=== PATIENT | female | born 1995 | race Caucasian/White ===

== ENCOUNTER 2017-08-26 13:05 | Inpatient (IN) | payer OTHER ==
[2017-08-26 13:06] VITALS: BMI 20.5
[2017-08-26] MEDS ORDERED: Sodium Chloride 0.9% 1,000 ML IV ONE ×2 (13:47→16:17)
--- NOTE | 2017-08-26 13:49 | C.PDOC ---
Time Seen by Provider: 08/26/17 13:36 Chief Complaint (Nursing): Fever Past Medical History Vital Signs: Last Vital Signs Temp 98.9 F 08/26/17 13:17 Pulse 136 H 08/26/17 13:17 Resp 20 08/26/17 13:17 BP 124/84 08/26/17 13:17 Pulse Ox 100 08/26/17 13:17 - [facility] Procedures EXCISION OF LEFT NECK LYMPHATIC, PERC APPROACH, DIAGN (07/17/15) EXCISION OF STOMACH, ENDO, DIAGN (07/17/15) EXTRACTION OF ILIAC BONE MARROW, PERC APPROACH, DIAGN (07/17/15) INSPECTION OF LOWER INTESTINAL TRACT, ENDO (07/17/15) Family History: States: Unknown Family Hx - Social History Hx Alcohol Use: No Hx Substance Use: No - Immunization History Hx Tetanus Toxoid Vaccination: No Hx Influenza Vaccination: No Hx Pneumococcal Vaccination: No ED Course And Treatment O2 Sat by Pulse Oximetry: 100 Disposition - Disposition
--- NOTE | 2017-08-26 13:50 | C.PDOC ---
History Of Present Illness 22 y/o female with PMHx of PDA with wire repair at age 1 presents to ED with complaints of subjective fever for 2-3 weeks with associated swollen and tender lymph nodes below left clavicle. Patient states symptoms are consistent with previous symptoms with diagnosis of Kikuchi disease. Patient was seen at ED in 2014 with similar symptoms and discharged with iron supplements, she admits she is not compliant. No other complaints at this time. Time Seen by Provider: 08/26/17 13:36 Chief Complaint (Nursing): Fever History Per: Patient History/Exam Limitations: no limitations Onset/Duration Of Symptoms: Days Current Symptoms Are (Timing): Still Present Past Medical History Reviewed: Historical Data, Nursing Documentation, Vital Signs Vital Signs: Last Vital Signs Temp 98.9 F 08/26/17 13:17 Pulse 116 H 08/26/17 14:58 Resp 17 08/26/17 14:58 BP 143/93 H 08/26/17 14:58 Pulse Ox 100 08/26/17 15:48 Surgical History: No Surg Hx - [facility] Procedures EXCISION OF LEFT NECK LYMPHATIC, PERC APPROACH, DIAGN (07/17/15) EXCISION OF STOMACH, ENDO, DIAGN (07/17/15) EXTRACTION OF ILIAC BONE MARROW, PERC APPROACH, DIAGN (07/17/15) INSPECTION OF LOWER INTESTINAL TRACT, ENDO (07/17/15) Family History: States: No Known Family Hx - Social History Hx Alcohol Use: No Hx Substance Use: No - Immunization History Hx Tetanus Toxoid Vaccination: No Hx Influenza Vaccination: No Hx Pneumococcal Vaccination: No Review Of Systems Constitutional: Positive for: Fever. Negative for: Chills Cardiovascular: Negative for: Chest Pain Respiratory: Negative for: Cough, Shortness of Breath Gastrointestinal: Negative for: Nausea, Vomiting Skin: Negative for: Rash Physical Exam - Physical Exam Appears: Non-toxic, No Acute Distress Skin: Warm, Dry, Pale Head: Atraumatic, Normacephalic Eye(s): bilateral: Normal Inspection Oral Mucosa: Moist Throat: Normal, No Erythema, No Exudate Neck: Normal ROM, Supple Chest: Other (Swollen mild tender lymph node to left lower clavicle) Cardiovascular: Rhythm Regular Respiratory: Normal Breath Sounds, No Rales, No Rhonchi, No Wheezing Gastrointestinal/Abdominal: Soft, No Tenderness, No Guarding, No Rebound Neurological/Psych: Oriented x3 ED Course And Treatment - Laboratory Results Result Diagrams: 08/26/17 14:13 08/26/17 14:13 ECG: Interpreted By Me ECG Rhythm: Sinus Tachycardia ECG Interpretation: Abnormal Rate From EC O2 Sat by Pulse Oximetry: 100 (RA) Pulse Ox Interpretation: Normal - Radiology CXR: Interpreted by Me CXR Interpretation: Yes: No Acute Disease, Other (wire repair in L PDA noted, unchanged from prior CXR 2014) Progress Note: Zosyn, Genta, IVF, toradol Reevaluation Time: 16:16 Reassessment Condition: Improved - Physician Consult Information Outcome Of Conversation: 1600: d/w Hospitalist, Dr. 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 Michelle first described the disease in 1971 in [place]. today w kikuchi with typical leukopenia but today w neutropenic fevers (similar presentation in 2014) and no bacterial infection noted after extensive hospitalization and empiric abx coverage Prior rash with EBV to Ampicillin is a hypersensitivity reaction but NOT an allergic reaction and zosyn may be continued safely for neutropenic coverage. Pt does NOT have h/o PCN allergy. Disposition Doctor Will See Patient In The: Hospital Counseled Patient/Family Regarding: Studies Performed, Diagnosis - Disposition Disposition: HOSPITALIZED Disposition Time: 16:17 Condition: GOOD Forms: [facility] (Sami) - Clinical Impression Clinical Impression: Neutropenic fever, Kikuchi disease - Scribe Statement The provider has reviewed the documentation as recorded by the Caleb Novoa All medical record entries made by the Aubreeibjennifer were at my direction and personally dictated by me. I have reviewed the chart and agree that the record accurately reflects my personal performance of the history, physical exam, medical decision making, and the department course for this patient. I have also personally directed, reviewed, and agree with the discharge instructions and disposition.
[2017-08-26] MEDS ORDERED: Sodium Chloride 0.9% 1,000 ML ONE ×2 (13:58→17:00)
[2017-08-26 14:24] LABS: RBC URINE 1 /hpf (0-3); URINE BILIRUBIN NEGATIVE (NEGATIVE); URINE BLOOD NEGATIVE (NEGATIVE); URINE COLOR Straw (YELLOW); URINE GLUCOSE (UA) NORMAL (Normal); URINE KETONE NEGATIVE (NEGATIVE); URINE LEUKOCYTE ESTERASE NEG Leu/uL (Negative); URINE PROTEIN NEGATIVE (NEGATIVE); URINE UROBILINOGEN NORMAL mg/dL (0.2-1.0); WBC URINE 1 /hpf (0-5)
[2017-08-26 14:27] LABS: CHLORIDE 99 mmol/L (98-107)
[2017-08-26 14:28] LABS: POTASSIUM 3.2 mmol/L (3.6-5.2); SODIUM 135 mmol/L (132-148)
[2017-08-26 14:29] LABS: BASO % 0.3 % (0.0-2.0); EOS % 0.2 % (0.0-4.0); HEMATOCRIT 34.1 % (34.0-47.0); LYMPH # 0.9 K/uL (1.0-4.3); LYMPH % 45.3 % (20.0-40.0); MEAN CORPUSCULAR HGB CONC 33.2 g/dL (33.0-37.0); MEAN PLATELET VOLUME 7.8 fL (7.2-11.7); MONO # 0.4 K/uL (0.0-0.8); MONO % 17.5 % (0.0-10.0); NRBC % 0.2 % (0.0-2.0); RED CELL DISTRIBUTION WIDTH 13.4 % (11.5-14.5)
[2017-08-26 14:30] LABS: AST/SGOT 39 U/L (14-36); BILIRUBIN,TOTAL 0.8 mg/dL (0.2-1.3); BLOOD UREA NITROGEN 7 mg/dL (7-17); CARBON DIOXIDE 25 mmol/L (22-30); GFR AFRICAN-AMERICAN > 60; TOTAL PROTEIN 8.8 g/dL (6.3-8.3)
[2017-08-26 14:31] LABS: ALKALINE PHOSPHATASE 74 U/L (38-126); ALT/SGPT 36 U/L (9-52); CALCIUM 8.2 mg/dl (8.6-10.4); GLUCOSE,RANDOM 83 mg/dL (65-105)
[2017-08-26 14:35] LABS: MEAN CELL VOLUME 81.5 fL (81.0-99.0)
--- NOTE | 2017-08-26 14:47 | RAD ---
HISTORY: SOB COMPARISON: 07/17/2015 TECHNIQUE: Chest PA and lateral FINDINGS: LUNGS: Lung volumes increased. PLEURA: No significant pleural effusion identified. No pneumothorax apparent. CARDIOVASCULAR: The heart size appears small or low-normal. A left lavern aortic metallic coiling device perhaps a clip for a treated patent ductus arteriosus is noted this is unchanged. OSSEOUS STRUCTURES: No significant abnormalities. VISUALIZED UPPER ABDOMEN: Normal. OTHER FINDINGS: None. IMPRESSION: No acute cardiopulmonary pathology.
[2017-08-26] MEDS ORDERED: Piperacillin/Tazobact 3.375 gm 100 ML IV STA (15:04)
[2017-08-26] MEDS ORDERED: Gentamicin 80 mg in 0.9% NS 80 MG/100 ML BAG IVPB ONE (16:00)
[2017-08-26] MEDS ORDERED: Piperacill/Tazo 3.375gm in Dex 3.375 GM/50 ML BAG IVPB ONE (16:00)
[2017-08-26] MEDS ORDERED: Potassium Chloride 20 mEq ER Tab PO ONE ×3 (16:13→19:15)
--- NOTE | 2017-08-26 17:38 | CP.PCM.HP ---
<Jarret Cook Maria Teresa - Last Filed: 08/26/17 18:49> History of Present Illness - History of Present Illness History of Present Illness: CC: "I'm having fevers again" This is a 22 year old female with a past medical history of Kikuchi disease, diagnosed in 2014, who presents to the ER today with intermittent fevers for the past 2 weeks. She occasionally measures the temperature orally which she says is usually around 101. During this 2 week course of intermittent fevers she states she's been feeling fatigued. She endorsed an enlarging, non-tender lump in the left pectoral region, superior to her left breast, which she first noticed 2 weeks ago. She endorsed a non-tender lump in her left axilla, which she also first noticed 2 weeks ago. She denies joint pain, rash, arthritis, night sweats, weight loss. She denies nausea, vomiting, diarrhea, constipation, appetite changes, recent travel or camping, sick contacts. During this 2 week period of fevers and fatigue, the patient has kept up her normal routine of going to work and socializing with friends. Last month she had a friend visit from [facility] who stayed with the patient for 10 days. She was discharged from [facility] in 07/2015 and told to follow-up with circle beveler/oncologist Dr Sheikh, however the patient did not follow-up. The patient was seen in the [facility] in 09/2015 for a routine checkup. Today's presentation is a similar presentation to her admission in 2014 where no bacterial infection was noted after extensive hospitalization and empiric antibiotic coverage. PMD: Dr Bryant PMHx: Kikuchi disease, diagnosed in 2014; Patent ductus arteriosus with wire repair at age 1 PSHx: Bone marrow biopsy 2014, EGD 2014, Colonoscopy 2014 Allergies: Amoxicillin - patient was prescribed amoxicillin in 2014 which resulted in a full-body rash (past infection with EBV induced mono) FamHx: Father - HTN SocialHx: Denies tobacco use, alcohol use or illicit drug use. Migrated from [facility] at age 18. Splits time living with father in [place], [place] and mother in [place], [place]. 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 Present on Admission - Present on Admission Any Indicators Present on Admission: No Review of Systems - Constitutional Constitutional: Fatigue, Fever. absent: Chills, Headache, Increased Appetite, Night Sweats, Weight Gain, Weight Loss, Weakness - EENT Eyes: absent: Change in Vision Ears: absent: Ear Pain Nose/Mouth/Throat: absent: Nasal Congestion - Cardiovascular Cardiovascular: absent: Chest Pain, Diaphoresis, Dyspnea on Exertion, Lightheadedness, Palpitations - Respiratory Respiratory: absent: Cough, Wheezing - Gastrointestinal Gastrointestinal: absent: Abdominal Pain, Belching, Bloating, Constipation, Diarrhea, Nausea, Vomiting - Genitourinary Genitourinary: absent: Dysuria - Reproductive: Female Reproductive:Female: Normal Menses - Musculoskeletal Musculoskeletal: absent: Arthralgias, Back Pain, Myalgias, Numbness - Integumentary Integumentary: absent: Pruritus, Rash - Neurological Neurological: absent: Dizziness, Numbness, Focal Weakness, Weakness Past Patient History - Infectious Disease Hx of Infectious Diseases: None - Past Medical History & Family History Past Medical History?: No - Past Social History Smoking Status: Never Smoked - HEMATOLOGICAL/ONCOLOGICAL Other/Comment: mono - MUSCULOSKELETAL/RHEUMATOLOGICAL Hx Falls: No - PSYCHIATRIC Hx Substance Use: No - SURGICAL HISTORY Hx Surgeries: No - ANESTHESIA Hx Anesthesia: Yes Hx Anesthesia Reactions: No Meds Allergies/Adverse Reactions: Allergies Allergy/AdvReac Type Severity Reaction Status Date / Time amoxicillin Allergy Verified 08/26/17 13:23 Physical Exam - Constitutional Appears: Well, No Acute Distress - Head Exam Head Exam: ATRAUMATIC, NORMAL INSPECTION - Eye Exam Eye Exam: EOMI, Normal appearance, PERRL - ENT Exam ENT Exam: Mucous Membranes Moist - Neck Exam Neck exam: Positive for: Normal Inspection. Negative for: Lymphadenopathy, Tenderness - Respiratory Exam Respiratory Exam: Clear to Auscultation Bilateral, NORMAL BREATHING PATTERN. absent: Accessory Muscle Use, Chest Wall Tenderness, Rales, Rhonchi, Wheezes - Cardiovascular Exam Cardiovascular Exam: Tachycardia, REGULAR RHYTHM, +S1, +S2. absent: Irregular Rhythm, Systolic Murmur - GI/Abdominal Exam GI & Abdominal Exam: Normal Bowel Sounds, Soft. absent: Distended, Firm, Guarding, Hernia, Rebound, Rigid, Tenderness - Rectal Exam Rectal Exam: Deferred - Extremities Exam Extremities exam: Positive for: full ROM, normal capillary refill, normal inspection, pedal pulses present. Negative for: calf tenderness, pedal edema, tenderness Additional comments: non-tender, non-erythmatous 3 cm diameter lymph node palpated 8 cm superior to left areola non-tender, non-erythmatous 3 cm diameter mobile lymph node palpated in left axilla, anterior aspect - Back Exam Back exam: NORMAL INSPECTION. absent: tenderness - Neurological Exam Neurological exam: Alert, CN II-XII Intact, Normal Gait, Oriented x3 - Psychiatric Exam Psychiatric exam: Normal Affect, Normal Mood - Skin Skin Exam: Intact, Normal Color, Warm Results - Vital Signs Recent Vital Signs: Last Vital Signs Temp 98.9 F 08/26/17 13:17 Pulse 115 H 08/26/17 17:09 Resp 14 08/26/17 17:09 BP 140/95 H 08/26/17 17:09 Pulse Ox 98 08/26/17 17:09 - Labs Result Diagrams: 08/26/17 14:13 08/26/17 14:13 Labs: Laboratory Results - last 24 hr 08/26/17 08/26/17 08/26/17 14:13 14:13 14:13 WBC 2.0 L* RBC 4.19 Hgb 11.3 Hct 34.1 MCV 81.5 D MCH 27.0 MCHC 33.2 RDW 13.4 Plt Count 320 MPV 7.8 Neut % (Auto) 36.7 L Lymph % (Auto) 45.3 H Powell % (Auto) 17.5 H Eos % (Auto) 0.2 Baso % (Auto) 0.3 Neut # 0.7 L Lymph # 0.9 L Powell # 0.4 Eos # 0.0 Baso # 0.0 Differential Comment Sodium 135 Potassium 3.2 L Chloride 99 Carbon Dioxide 25 Anion Gap 14 BUN 7 Creatinine 0.5 L Est GFR ( Amer) > 60 Est GFR (Non-Af Amer) > 60 Random Glucose 83 Calcium 8.2 L Total Bilirubin 0.8 AST 39 H ALT 36 Alkaline Phosphatase 74 Troponin I < 0.0120 Total Protein 8.8 H Albumin 4.4 Globulin 4.4 H Albumin/Globulin Ratio 1.0 Urine Color Straw Urine Clarity Clear Urine pH 6.0 Ur Specific [place] 1.004 Urine Protein Negative Urine Glucose (UA) Normal Urine Ketones Negative Urine Blood Negative Urine Nitrate Negative Urine Bilirubin Negative Urine Urobilinogen Normal Ur Leukocyte Esterase Neg Urine WBC (Auto) 1 Urine RBC (Auto) 1 Ur Squamous Epith Cells 1 Urine HCG, Qual Negative Assessment & Plan (1) Kikuchi disease Assessment and Plan: Heme/Onc consult, Dr Silverman Infectious Disease consult, Dr Shields CRP, F/U HIV 1 & 2 Antibody Screen, F/U ESR, F/U CMV Ab, F/U EBV Ab, F/U Lupus (SLE) Panel, F/U ALYX, F/U Meds: Cefepime 2g IVPB Q8H NS @ 100 cc/hr Status: Acute Priority: High (2) Transaminitis Assessment and Plan: On admission AST 39 ALT 36 Avoid hepatotoxic drugs monitor Status: Acute Priority: Low (3) Prophylactic measure Assessment and Plan: Protonix 40mg IV QD Encourage ambulation Status: Acute Priority: Low <Tanisha Wilson V - Last Filed: 08/30/17 13:29> Results - Vital Signs Recent Vital Signs: Last Vital Signs Temp 99.0 F 08/30/17 07:32 Pulse 102 H 08/30/17 07:32 Resp 20 08/30/17 07:32 BP 113/69 08/30/17 07:32 Pulse Ox 98 08/30/17 07:32 - Labs Result Diagrams: 08/28/17 11:29 08/28/17 11:29 Attending/Attestation - Attestation I have personally seen and examined this patient.: Yes I have fully participated in the care of the patient.: Yes I have reviewed all pertinent clinical information: Yes Notes (Text): This is late computer entry for 08/26/17. Patient seen, examined and case discussed with day-time resident. Patient reports subjective fevers for the past 2-3 weeks which did not improve which prompted her to come to the hospital. Patient denies URI, denies abdominal pain , denies symptoms of UTI, denies diarrhea, but reports painful lymph node supra- clavicular mobile, left side on exam. Patient denies recent travel, is not sexually active, and no recent antibiotic use. Patient reports she had similar symptoms last time when she was in the hospital in 2014, details available in the EMR, wherein she completed lymph node bx, and found to have a rare, lymphoprofilerative disorder, Kikuchi disease. Per [employer], it reads as a benign, self-limiting disease, resolves within 1-4 months which may require steroids. Assessment/Plan (1) Neutropenic Fever History of Kikuchi's Disease Assessment and Plan: * Heme/Onc consult, Dr Silverman contacted on admission * Infectious Disease consult, Dr Shields on admission * Rule out other etiologies: * f/u ESR, CRP, and ALYX-->prior to starting steroids if needs * f/u HIV 1 & 2 Antibody Screen * f/u CMV Ab, F/U * f/u EBV Ab, F/U * f/u Lupus (SLE) Panel * Blood and Urine cultures * ID started patient on Cefepime 2g IVPB Q8H * NS @ 100 cc/hr * Note: patient has adverse reaction to Amoxcillin, noting a rash given exposure to EBV Status: Acute Priority: High (2) Transaminitis Assessment and Plan: * On admission AST 39 ALT 36 * Avoid hepatotoxic drugs * monitor Status: Acute Priority: Low (3) Prophylactic measure Assessment and Plan: * Protonix 40mg IV QD * Encourage ambulation Status: Acute Priority: Low
[2017-08-26] MEDS: Sodium Chloride 0.9% 1,000 ML IV SCH (19:00)
--- NOTE | 2017-08-26 19:45 | CP.PCM.CON ---
History of Present Illness - History of Present Illness History of Present Illness: 22 year old female with a history of Kikuchi lympadenitis admitted with fever and neutropenia. The patient was diagnosed with Kikuchi lymphadenitis in 2014. At the time, she presented with similar symptoms with a work up that included a bone marrow biopsy. Her bone marrow evaluation was negative for malignancy. She has not followed up with a physician for further treatment of her condition as she was feeling well. Past medical history: Kikuchi lymphadenitis Past surgical history: None Family history: Denies hematologic and oncologic problems Social history: Denies tobacco, alcohol, and illicit drug use. Allergies: Amoxicillin Review of systems: All remaining review of systems including HEENT, cardiovascular, respiratory, gastrointestinal, genitourinary, musculoskeletal, dermatologic, neurologic, and psychiatric are negative unless mentioned in the HPI. Past Patient History - Infectious Disease Hx of Infectious Diseases: None - Past Medical History & Family History Past Medical History?: No - Past Social History Smoking Status: Never Smoked - HEMATOLOGICAL/ONCOLOGICAL Other/Comment: mono - MUSCULOSKELETAL/RHEUMATOLOGICAL Hx Falls: No - PSYCHIATRIC Hx Substance Use: No - SURGICAL HISTORY Hx Surgeries: No - ANESTHESIA Hx Anesthesia: Yes Hx Anesthesia Reactions: No Meds Allergies/Adverse Reactions: Allergies Allergy/AdvReac Type Severity Reaction Status Date / Time amoxicillin Allergy Verified 08/26/17 13:23 - Medications Medications: Current Medications Sodium Chloride (Sodium Chloride 0.9%) 1,000 mls @ 100 mls/hr IV .Q10H ROBINSON Cefepime HCl 2 gm/ Dextrose 100 mls @ 100 mls/hr IVPB Q8H ROBINSON Pantoprazole Sodium (Protonix Inj) 40 mg IVP DAILY ROBINSON Physical Exam - Head Exam Head Exam: ATRAUMATIC - Eye Exam Eye Exam: Normal appearance - ENT Exam ENT Exam: Mucous Membranes Dry - Respiratory Exam Respiratory Exam: NORMAL BREATHING PATTERN - Cardiovascular Exam Cardiovascular Exam: +S1, +S2 - GI/Abdominal Exam GI & Abdominal Exam: Normal Bowel Sounds - Extremities Exam Extremities exam: Positive for: normal inspection - Neurological Exam Neurological exam: Oriented x3 - Psychiatric Exam Psychiatric exam: Normal Affect, Normal Mood - Skin Skin Exam: Warm Results - Vital Signs Recent Vital Signs: Last Vital Signs Temp 99.5 F 08/26/17 16:35 Pulse 115 H 08/26/17 17:09 Resp 14 08/26/17 17:09 BP 140/95 H 08/26/17 17:09 Pulse Ox 98 08/26/17 17:09 - Labs Result Diagrams: 08/26/17 14:13 08/26/17 14:13 Labs: Laboratory Results - last 24 hr 08/26/17 08/26/17 08/26/17 14:13 14:13 14:13 WBC 2.0 L* RBC 4.19 Hgb 11.3 Hct 34.1 MCV 81.5 D MCH 27.0 MCHC 33.2 RDW 13.4 Plt Count 320 MPV 7.8 Neut % (Auto) 36.7 L Lymph % (Auto) 45.3 H [place] % (Auto) 17.5 H Eos % (Auto) 0.2 Baso % (Auto) 0.3 Neut # 0.7 L Lymph # 0.9 L [place] # 0.4 Eos # 0.0 Baso # 0.0 Differential Comment Sodium 135 Potassium 3.2 L Chloride 99 Carbon Dioxide 25 Anion Gap 14 BUN 7 Creatinine 0.5 L Est GFR ( Amer) > 60 Est GFR (Non-Af Amer) > 60 Random Glucose 83 Calcium 8.2 L Total Bilirubin 0.8 AST 39 H ALT 36 Alkaline Phosphatase 74 Troponin I < 0.0120 Total Protein 8.8 H Albumin 4.4 Globulin 4.4 H Albumin/Globulin Ratio 1.0 Urine Color Straw Urine Clarity Clear Urine pH 6.0 Ur Specific [place] 1.004 Urine Protein Negative Urine Glucose (UA) Normal Urine Ketones Negative Urine Blood Negative Urine Nitrate Negative Urine Bilirubin Negative Urine Urobilinogen Normal Ur Leukocyte Esterase Neg Urine WBC (Auto) 1 Urine RBC (Auto) 1 Ur Squamous Epith Cells 1 Urine HCG, Qual Negative Assessment & Plan (1) Neutropenia Assessment and Plan: related to Kikuchi lymphadenitis; treatment per primary team no indication for repeat bone marrow or growth factor support Status: Acute (2) Anemia Assessment and Plan: mild will send further work up Thank you for this interesting consult. Status: Acute
[2017-08-26 20:09] VITALS: RESP 20
--- NOTE | 2017-08-26 21:16 | CP.PCM.CON ---
History of Present Illness - History of Present Illness History of Present Illness: dictated Past Patient History - Infectious Disease Hx of Infectious Diseases: None - Past Medical History & Family History Past Medical History?: No - Past Social History Smoking Status: Never Smoked - CARDIAC Hx Cardiac Disorders: No - PULMONARY Hx Respiratory Disorders: No - NEUROLOGICAL Hx Neurological Disorder: No - HEENT Hx HEENT Problems: No - RENAL Hx Chronic Kidney Disease: No Hx Dialysis: No - ENDOCRINE/METABOLIC Hx Endocrine Disorders: No - HEMATOLOGICAL/ONCOLOGICAL Hx Blood Disorders: No Other/Comment: mono - INTEGUMENTARY Hx Dermatological Problems: No - MUSCULOSKELETAL/RHEUMATOLOGICAL Hx Musculoskeletal Disorders: No Hx Falls: No - GASTROINTESTINAL Hx Gastrointestinal Disorders: No - GENITOURINARY/GYNECOLOGICAL Hx Genitourinary Disorders: No - PSYCHIATRIC Hx Psychophysiologic Disorder: No Hx Substance Use: No - SURGICAL HISTORY Hx Surgeries: No - ANESTHESIA Hx Anesthesia: Yes Hx Anesthesia Reactions: No Hx Malignant Hyperthermia: No Has any member of the family had a problem w/ anesthesia?: No Meds Allergies/Adverse Reactions: Allergies Allergy/AdvReac Type Severity Reaction Status Date / Time amoxicillin Allergy Verified 08/26/17 13:23 - Medications Medications: Current Medications Sodium Chloride (Sodium Chloride 0.9%) 1,000 mls @ 100 mls/hr IV .Q10H ROBINSON Last Admin: 08/26/17 19:00 Dose: 100 mls/hr Cefepime HCl 2 gm/ Dextrose 100 mls @ 100 mls/hr IVPB Q8H ROBINSON Potassium Chloride (Potassium Chloride 20 Meq/100 Ml) 20 meq in 100 mls @ 50 mls/hr IVPB ONCE ONE Stop: 08/26/17 21:59 Last Admin: 08/26/17 20:37 Dose: 50 mls/hr Pantoprazole Sodium (Protonix Inj) 40 mg IVP DAILY ROBINSON Pneumococcal Polyvalent Vaccine (Pneumovax 23 Vaccine) 0.5 ml IM .ONCE ONE Stop: 08/28/17 10:01 Results - Vital Signs Recent Vital Signs: Last Vital Signs Temp 99.5 F 08/26/17 16:35 Pulse 115 H 08/26/17 17:09 Resp 20 08/26/17 19:58 BP 140/95 H 08/26/17 17:09 Pulse Ox 98 08/26/17 17:09 - Labs Result Diagrams: 08/26/17 14:13 08/26/17 14:13 Labs: Laboratory Results - last 24 hr 08/26/17 08/26/17 08/26/17 14:13 14:13 14:13 WBC 2.0 L* RBC 4.19 Hgb 11.3 Hct 34.1 MCV 81.5 D MCH 27.0 MCHC 33.2 RDW 13.4 Plt Count 320 MPV 7.8 Neut % (Auto) 36.7 L Lymph % (Auto) 45.3 H [place] % (Auto) 17.5 H Eos % (Auto) 0.2 Baso % (Auto) 0.3 Neut # 0.7 L Lymph # 0.9 L [place] # 0.4 Eos # 0.0 Baso # 0.0 Differential Comment ESR Sodium 135 Potassium 3.2 L Chloride 99 Carbon Dioxide 25 Anion Gap 14 BUN 7 Creatinine 0.5 L Est GFR ( Amer) > 60 Est GFR (Non-Af Amer) > 60 Random Glucose 83 Calcium 8.2 L Total Bilirubin 0.8 AST 39 H ALT 36 Alkaline Phosphatase 74 Troponin I < 0.0120 C-React Prot High Sens Total Protein 8.8 H Albumin 4.4 Globulin 4.4 H Albumin/Globulin Ratio 1.0 Urine Color Straw Urine Clarity Clear Urine pH 6.0 Ur Specific [place] 1.004 Urine Protein Negative Urine Glucose (UA) Normal Urine Ketones Negative Urine Blood Negative Urine Nitrate Negative Urine Bilirubin Negative Urine Urobilinogen Normal Ur Leukocyte Esterase Neg Urine WBC (Auto) 1 Urine RBC (Auto) 1 Ur Squamous Epith Cells 1 Urine HCG, Qual Negative HIV 1&2 Antibody Screen 08/26/17 08/26/17 08/26/17 19:46 19:46 19:46 WBC RBC Hgb Hct MCV MCH MCHC RDW Plt Count MPV Neut % (Auto) Lymph % (Auto) [place] % (Auto) Eos % (Auto) Baso % (Auto) Neut # Lymph # [place] # Eos # Baso # Differential Comment ESR 74 H Sodium Potassium Chloride Carbon Dioxide Anion Gap BUN Creatinine Est GFR ( Amer) Est GFR (Non-Af Amer) Random Glucose Calcium Total Bilirubin AST ALT Alkaline Phosphatase Troponin I C-React Prot High Sens 14.79 H Total Protein Albumin Globulin Albumin/Globulin Ratio Urine Color Urine Clarity Urine pH Ur Specific [place] Urine Protein Urine Glucose (UA) Urine Ketones Urine Blood Urine Nitrate Urine Bilirubin Urine Urobilinogen Ur Leukocyte Esterase Urine WBC (Auto) Urine RBC (Auto) Ur Squamous Epith Cells Urine HCG, Qual HIV 1&2 Antibody Screen Negative
[2017-08-26] MEDS: Cefepime 2 GM in Dextrose 5% In Water 100 ML IVPB SCH (21:52)
[2017-08-27] MEDS: Sodium Chloride 0.9% 1,000 ML IV SCH ×2 (02:59→13:18)
[2017-08-27] MEDS: Cefepime 2 GM in Dextrose 5% In Water 100 ML IVPB SCH ×3 (03:00→19:58)
[2017-08-27 06:50] LABS: CHLORIDE 106 mmol/L (98-107); POTASSIUM 4.1 mmol/L (3.6-5.2); SODIUM 136 mmol/L (132-148)
[2017-08-27 06:52] LABS: AST/SGOT 37 U/L (14-36); BILIRUBIN,TOTAL 0.5 mg/dL (0.2-1.3); CARBON DIOXIDE 22 mmol/L (22-30); GFR AFRICAN-AMERICAN > 60
[2017-08-27 06:53] LABS: ALB/GLOB RATIO 0.8 (1.0-2.1); ALKALINE PHOSPHATASE 63 U/L (38-126); ALT/SGPT 41 U/L (9-52); BLOOD UREA NITROGEN 4 mg/dL (7-17); CALCIUM 8.1 mg/dl (8.6-10.4); GLUCOSE,RANDOM 79 mg/dL (65-105); PHOSPHOROUS 2.8 mg/dL (2.5-4.5); TOTAL PROTEIN 8.5 g/dL (6.3-8.3)
[2017-08-27 06:54] LABS: MAGNESIUM 1.9 mg/dL (1.6-2.3)
--- NOTE | 2017-08-27 07:21 | CON ---
DATE: HISTORY OF PRESENT ILLNESS: This is a 22-year-old female. 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 She feels very weak and during this, has been having fevers, feeling fatigued. She noticed a lump in the left pectoral area, just above her breast. She shows me some tenderness, but I think we will need to get more definite. Of interest is that her white count is 2.0. She denies using any drugs. She does not take any medications. She denies any nausea, vomiting, diarrhea, just says feels weak. No recent travel. No sick contact. She was discharged in [facility] in 2014 and was told to follow with Dr. Sheikh, but has not done so and now comes with fever and malaise. 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 PAST SURGICAL HISTORY: Bone marrow biopsy in 2014, EGD in 2014, and colonoscopy in 2014. ALLERGIES: SHE IS ALLERGIC TO AMOXICILLIN, WHICH IS PRESCRIBED. SHE DEVELOPED RASH, BUT TODAY SHE TOLERATED ZOSYN WELL AND NOW WE HAVE PUT HER ON MAXIPIME BECAUSE OF HER LEUKOPENIA. FAMILY HISTORY: Father has hypertension. SOCIAL HISTORY: She migrated from [place] at age 18. Denies any drugs or tobacco abuse. She lives sometimes with her father and sometimes with mother and they are . 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 REVIEW OF SYSTEMS: She did complain of fever. Denied any chills. No headaches. She has increased appetite, night sweats. No weight gain, no weight loss, no weakness, just has fever. Denies any ear, nose, throat problems. Denies any chest pain. No diaphoresis. No palpitations. Denies any nausea, vomiting, or diarrhea. She denies any cough. No wheezing. No urinary symptoms. Has normal periods. Denies any joint pains. No skin rashes. No dizziness or any focal symptoms. Neurological and past patient history is negative. PHYSICAL EXAMINATION VITAL SIGNS: T-max is 99.5, pulse is 115, blood pressure 140/95, respirations are 14. She remains tachycardic. HEENT: Head is atraumatic, normocephalic. NECK: I did not feel any lymph nodes. Neck is supple. JVP is flat. LUNGS: Clear. No crackles or rales present. HEART: S1 and S2 is regular. Tachycardia present. ABDOMEN: Soft, nontender. No guarding, no rigidity present. EXTREMITIES: Have no edema, clubbing or cyanosis. LYMPH: In the axilla, there is a small lymph node. There is some fullness in the left upper chest. LABORATORY DATA: White count is 2, hemoglobin 11.3, hematocrit 34.1, platelet count is 322. Potassium is 3.2 which needs to be supplemented. UA is negative. PLAN: They have ordered HIV, EVV, CMV. We will order toxoplasma and asthenia also as that was noted in some patients. We will continue cefepime at this time and we will follow. We would also get a CAT scan of the chest, abdomen, and pelvis to rule out other etiology and to be sure that this is a lymph node enlargement. We will continue the same treatment. Everardo Shields MD
[2017-08-27 07:28] LABS: BASO % 0.2 % (0.0-2.0); EOS % 0.9 % (0.0-4.0); HEMATOCRIT 31.3 % (34.0-47.0); LYMPH # 1.1 K/uL (1.0-4.3); LYMPH % 52.2 % (20.0-40.0); MEAN CELL VOLUME 82.3 fL (81.0-99.0); MEAN CORPUSCULAR HEMOGLOBIN 27.3 pg (27.0-31.0); MEAN CORPUSCULAR HGB CONC 33.1 g/dL (33.0-37.0); MEAN PLATELET VOLUME 8.3 fL (7.2-11.7); MONO # 0.3 K/uL (0.0-0.8); RED CELL DISTRIBUTION WIDTH 13.7 % (11.5-14.5); WHITE BLOOD COUNT 2.1 K/uL (4.8-10.8)
[2017-08-27 07:38] LABS: RETIC% 0.6 % (0.5-1.5)
[2017-08-27 08:13] LABS: FOLATE 16.6 ng/mL
[2017-08-27] MEDS ORDERED: Iohexol 240 (50 ml) PO ONE (08:30)
[2017-08-27] MEDS: Saccharomyces Boulardi 250 mg Cap PO SCH ×2 (09:41→17:58)
[2017-08-27] MEDS ORDERED: Iohexol 350mg/ml 100 ML ONE (09:46)
--- NOTE | 2017-08-27 11:46 | CT ---
PROCEDURE: CT Chest, Abdomen and Pelvis with intravenous contrast HISTORY: fever,kikiuchi syndrome,repaired PDA ,neutropenia COMPARISON: No prior chest CT available for comparison. Comparison made with prior abdomen pelvis CT examination with contrast 07/20/2015. TECHNIQUE: IV dose administered: Omnipaque 350, 100 cc. Radiation dose: Total exam DLP = 379.80 mGy-cm. This CT exam was performed using one or more of the following dose reduction techniques: Automated exposure control, adjustment of the mA and/or kV according to patient size, and/or use of iterative reconstruction technique. FINDINGS: CT CHEST WITH CONTRAST: LUNGS: Clear. No nodule, mass or consolidation. MEDIASTINUM: Unremarkable. Normal caliber aorta and pulmonary arterial trunk. No aortic dissection. Normal size heart. LYMPH NODES: Left axillary and subpectoral lymphadenopathy is appreciated including left axilla lymph node measuring 1.7 x 2.7 cm immobile sub pectoral lymph nodes identified, with the largest measuring approximately 1.2 x 2.0 cm. No right-sided lymphadenopathy is appreciate the chest with only shotty right axillary lymph nodes identified. No supraclavicular lymphadenopathy. PLEURA: Unremarkable. No pneumothorax. No pleural fluid. BONES: Unremarkable. OTHER FINDINGS: None. CT ABDOMEN AND PELVIS: LIVER: Unremarkable. No gross lesion or ductal dilatation. GALLBLADDER AND BILE DUCTS: Unremarkable. PANCREAS: Unremarkable. No gross lesion or ductal dilatation. SPLEEN: Unremarkable. ADRENALS: Unremarkable. No mass. KIDNEYS AND URETERS: Unremarkable. No hydronephrosis. No solid mass. VASCULATURE: Unremarkable. No aortic aneurysm. BOWEL: Unremarkable. No obstruction. No gross mural thickening. APPENDIX: Normal appendix. PERITONEUM: Unremarkable. No free fluid. No free air. LYMPH NODES: Unremarkable. No enlarged lymph nodes. BLADDER: Unremarkable. REPRODUCTIVE: Unremarkable. BONES: No acute fracture. OTHER FINDINGS: None. IMPRESSION: CT scan of the chest, abdomen and pelvis reveals only left subpectoral an actual lymphadenopathy as detailed above. None is seen at the right axilla or either supraclavicular fossa or throughout the mediastinum bilateral hilar regions. None is seen throughout the abdomen and pelvis exam. No solid parenchymal mass is seen throughout the abdominal or chest viscera as discussed above. Abdomen/pelvis CT is stable when compared to prior and Abdomen/pelvis CT 07/20/2015.
--- NOTE | 2017-08-27 17:51 | CP.PCM.PN ---
Subjective - Date & Time of Evaluation Date of Evaluation: 08/27/17 Time of Evaluation: 17:48 - Subjective Subjective: PGY1 Note for Dr. Badillo HPI: Patient seen and examined at [facility]. Doing well with no complaints at this time. States feeling much better since getting antibiotics. Tolerating diet. Ambulating without difficulty. Denies chest pain, SOB, fevers, chills Objective - Vital Signs/Intake and Output Vital Signs (last 24 hours): Temp Pulse Resp BP Pulse Ox 99.1 F 99 H 20 109/70 100 08/27/17 16:00 08/27/17 16:00 08/27/17 16:00 08/27/17 16:00 08/27/17 16:00 Intake and Output: 08/27/17 08/27/17 06:59 18:59 Intake Total 1250 1200 Balance 1250 1200 - Medications Medications: Current Medications Sodium Chloride (Sodium Chloride 0.9%) 1,000 mls @ 100 mls/hr IV .Q10H [facility] Last Admin: 08/27/17 13:18 Dose: 100 mls/hr Cefepime HCl 2 gm/ Dextrose 100 mls @ 100 mls/hr IVPB Q8H [facility] Last Admin: 08/27/17 11:30 Dose: 100 mls/hr Pantoprazole Sodium (Protonix Inj) 40 mg IVP DAILY [facility] Last Admin: 08/27/17 09:40 Dose: 40 mg Pneumococcal Polyvalent Vaccine (Pneumovax 23 Vaccine) 0.5 ml IM .ONCE ONE Stop: 08/28/17 10:01 Saccharomyces Boulardii (Florastor) 250 mg PO BID [facility] Last Admin: 08/27/17 09:41 Dose: 250 mg - Labs Labs: 08/27/17 06:31 08/27/17 06:31 - Constitutional Appears: Well, Non-toxic, No Acute Distress - Head Exam Head Exam: ATRAUMATIC, NORMAL INSPECTION, NORMOCEPHALIC - Eye Exam Eye Exam: EOMI Pupil Exam: NORMAL ACCOMODATION - ENT Exam ENT Exam: Mucous Membranes Moist - Respiratory Exam Respiratory Exam: Clear to Ausculation Bilateral, NORMAL BREATHING PATTERN - Cardiovascular Exam Cardiovascular Exam: REGULAR RHYTHM - GI/Abdominal Exam GI & Abdominal Exam: Soft, Normal Bowel Sounds. absent: Distended, Tenderness - Extremities Exam Additional comments: fullness appreciated in the upper outer quadrant of R. breast. No distinct nodule appreciated. - Back Exam Back Exam: absent: CVA tenderness (L), CVA tenderness (R) - Neurological Exam Neurological Exam: Alert, Awake, Oriented x3 - Psychiatric Exam Psychiatric exam: Normal Affect, Normal Mood Assessment and Plan - Assessment and Plan (Free Text) Assessment: (1) Kikuchi disease Assessment and Plan: Heme/Onc consult, Dr Silverman Infectious Disease consult, Dr Shields CRP 14.79 HIV 1 & 2 Antibody Screen negative ESR 74 CMV Ab F/U EBV Ab F/U Lupus (SLE) Panel, F/U ALYX negative Blood cultures F/U F/U US of upper outer quadrant Meds: Cefepime 2g IVPB Q8H NS @ 100 cc/hr Status: Acute Priority: High (2) Transaminitis Assessment and Plan: On admission AST 39 ALT 36 Avoid hepatotoxic drugs monitor Status: Acute Priority: Low (3) Prophylactic measure Assessment and Plan: Protonix 40mg IV QD Encourage ambulation Status: Acute Priority: Low
--- NOTE | 2017-08-27 20:07 | CP.PCM.PN ---
Subjective - Date & Time of Evaluation Date of Evaluation: 08/27/17 Time of Evaluation: 05:45 - Subjective Subjective: dictated Objective - Vital Signs/Intake and Output Vital Signs (last 24 hours): Temp Pulse Resp BP Pulse Ox 99.1 F 99 H 20 109/70 100 08/27/17 16:00 08/27/17 16:00 08/27/17 16:00 08/27/17 16:00 08/27/17 16:00 Intake and Output: 08/27/17 08/28/17 18:59 06:59 Intake Total 1200 Balance 1200 - Medications Medications: Current Medications Sodium Chloride (Sodium Chloride 0.9%) 1,000 mls @ 100 mls/hr IV .Q10H [facility] Last Admin: 08/27/17 13:18 Dose: 100 mls/hr Cefepime HCl 2 gm/ Dextrose 100 mls @ 100 mls/hr IVPB Q8H [facility] Last Admin: 08/27/17 19:58 Dose: 100 mls/hr Pantoprazole Sodium (Protonix Inj) 40 mg IVP DAILY [facility] Last Admin: 08/27/17 09:40 Dose: 40 mg Pneumococcal Polyvalent Vaccine (Pneumovax 23 Vaccine) 0.5 ml IM .ONCE ONE Stop: 08/28/17 10:01 Saccharomyces Boulardii (Florastor) 250 mg PO BID [facility] Last Admin: 08/27/17 17:58 Dose: 250 mg - Labs Labs: 08/27/17 06:31 08/27/17 06:31
--- NOTE | 2017-08-27 20:33 | US ---
EXAM: US Left Breast Limited EXAM DATE/TIME: 08/27/2017 2:48 PM CLINICAL HISTORY: 22 years old, female; Signs and symptoms; Other: R/O fluid collection; Additional info: R/O fluid collection, CT says lymphadenopathy TECHNIQUE: Targeted ultrasound of the upper outer quadrant of the left breast was performed, specifically to assess for a fluid collection. COMPARISON: Report from a prior CT chest performed earlier today. The prior study itself is currently unavailable, however. FINDINGS: No focal mass or fluid collection is seen in the left breast upper outer quadrant. Multiple ovoid, hypoechoic, well-defined masses are seen in the left infraclavicular soft tissues and in the left axillary soft tissues. These are similar in appearance, and are suspicious for multiple lymph nodes, secondary to lymphadenopathy. Although most of the lymph nodes are small in size, the number present is abnormal. The largest lymph node is located in the left axillary region, and measures 4.3 x 1.9 x 2.3 cm. IMPRESSION: Targeted ultrasound of the left breast upper outer quadrant demonstrates no focal breast mass or fluid collection. (BI-RADS code 2-benign breast findings) Findings highly suspicious for left axillary and infraclavicular lymphadenopathy. Similar findings were described on the recent CT chest report. Neoplastic lymphadenopathy, such as lymphoma or metastatic lymph nodes, is not excluded. See above for remaining findings.
--- NOTE | 2017-08-27 23:50 | PN ---
DATE: SUBJECTIVE: The patient is afebrile. She is feeling little better. PHYSICAL EXAMINATION: VITAL SIGNS: T-max is 99.1, heart rate is 99, blood pressure 109/70, respirations are 20. HEENT: Head is atraumatic. NECK: Supple. She does have fullness in the left chest wall. LUNGS: Clear. HEART: S1 and S2, regular. ABDOMEN: Soft, nontender. No guarding. No rigidity present. EXTREMITIES: No edema. LABORATORY DATA: Show white count is 2.1, hemoglobin 10.4, hematocrit 31.3 and platelet count is 313. ESR is 74, retic count was 0.6. ASSESSMENT AND PLAN: Cultures were done. I do not see any culture specimen order. Blood culture was ordered today and I would just anyway order a urine culture that I did not blood and urine culture. The patient is improving. She was seen by Dr. Silverman and still remains with low white count and will follow. The patient has neutropenic fever with Kikuchi disease and will follow. Everardo Shields MD
[2017-08-28] MEDS: Sodium Chloride 0.9% 1,000 ML IV SCH ×5 (02:15→21:33)
[2017-08-28] MEDS: Cefepime 2 GM in Dextrose 5% In Water 100 ML IVPB SCH ×3 (03:15→20:37)
[2017-08-28] MEDS ORDERED: Influenza Vaccine 60 mcg/0.5 mL SYR (4YR UP) IM ONE (10:00)
[2017-08-28] MEDS ORDERED: Pneumococcal 23-Valent Vaccine IM ONE (10:00)
[2017-08-28] MEDS: Saccharomyces Boulardi 250 mg Cap PO SCH ×2 (10:54→17:46)
[2017-08-28 11:42] LABS: MONO # 0.4 K/uL (0.0-0.8)
[2017-08-28 11:53] LABS: BASO % 0.3 % (0.0-2.0); EOS % 0.5 % (0.0-4.0); HEMATOCRIT 29.9 % (34.0-47.0); LYMPH # 0.9 K/uL (1.0-4.3); LYMPH % 38.9 % (20.0-40.0); MEAN CELL VOLUME 81.9 fL (81.0-99.0); MEAN CORPUSCULAR HEMOGLOBIN 27.8 pg (27.0-31.0); MEAN CORPUSCULAR HGB CONC 33.9 g/dL (33.0-37.0); MEAN PLATELET VOLUME 8.1 fL (7.2-11.7); MONO % 18.1 % (0.0-10.0); NRBC % 0.1 % (0.0-2.0); RED CELL DISTRIBUTION WIDTH 13.5 % (11.5-14.5); WHITE BLOOD COUNT 2.3 K/uL (4.8-10.8)
[2017-08-28 12:04] LABS: CHLORIDE 102 mmol/L (98-107); SODIUM 136 mmol/L (132-148)
[2017-08-28 12:05] LABS: POTASSIUM 3.7 mmol/L (3.6-5.2)
[2017-08-28 12:07] LABS: ALB/GLOB RATIO 0.8 (1.0-2.1); ALKALINE PHOSPHATASE 58 U/L (38-126); ALT/SGPT 33 U/L (9-52); AST/SGOT 27 U/L (14-36); BILIRUBIN,TOTAL 0.4 mg/dL (0.2-1.3); BLOOD UREA NITROGEN 8 mg/dL (7-17); CALCIUM 8.3 mg/dl (8.6-10.4); CARBON DIOXIDE 23 mmol/L (22-30); GFR AFRICAN-AMERICAN > 60; GLUCOSE,RANDOM 74 mg/dL (65-105); TOTAL PROTEIN 8.5 g/dL (6.3-8.3)
--- NOTE | 2017-08-28 13:50 | CP.PCM.PN ---
Subjective - Date & Time of Evaluation Date of Evaluation: 08/28/17 Time of Evaluation: 13:46 - Subjective Subjective: patient seen and examined at bedside. Complaining of diarrhea. No blood in the stool. No pain over lymphadenopathy. Had a fever this am. No other complaints at this time Objective - Vital Signs/Intake and Output Vital Signs (last 24 hours): Temp Pulse Resp BP Pulse Ox 100.3 F H 120 H 20 117/76 97 08/28/17 07:27 08/28/17 07:27 08/28/17 07:27 08/28/17 07:27 08/28/17 07:27 Intake and Output: 08/28/17 08/28/17 06:59 18:59 Intake Total 2350 Balance 2350 - Medications Medications: Current Medications Sodium Chloride (Sodium Chloride 0.9%) 1,000 mls @ 100 mls/hr IV .Q10H [facility] Last Admin: 08/28/17 09:12 Dose: Not Given Cefepime HCl 2 gm/ Dextrose 100 mls @ 100 mls/hr IVPB Q8H [facility] Last Admin: 08/28/17 10:54 Dose: 100 mls/hr Pantoprazole Sodium (Protonix Inj) 40 mg IVP DAILY [facility] Last Admin: 08/28/17 10:54 Dose: 40 mg Saccharomyces Boulardii (Florastor) 250 mg PO BID [facility] Last Admin: 08/28/17 10:54 Dose: 250 mg - Labs Labs: 08/28/17 11:29 08/28/17 11:29 - Skin Additional comments: - Constitutional Appears: Well, Non-toxic, No Acute Distress - Head Exam Head Exam: ATRAUMATIC, NORMAL INSPECTION, NORMOCEPHALIC - Eye Exam Eye Exam: EOMI Pupil Exam: NORMAL ACCOMODATION - ENT Exam ENT Exam: Mucous Membranes Moist - Respiratory Exam Respiratory Exam: Clear to Ausculation Bilateral, NORMAL BREATHING PATTERN - Cardiovascular Exam Cardiovascular Exam: REGULAR RHYTHM - GI/Abdominal Exam GI & Abdominal Exam: Soft, Normal Bowel Sounds. absent: Distended, Tenderness - Extremities Exam Additional comments: fullness appreciated in the upper outer quadrant of R. breast. No distinct nodule appreciated. - Back Exam Back Exam: absent: CVA tenderness (L), CVA tenderness (R) - Neurological Exam Neurological Exam: Alert, Awake, Oriented x3 - Psychiatric Exam Psychiatric exam: Normal Affect, Normal Mood Assessment and Plan - Assessment and Plan (Free Text) Assessment: (1) Kikuchi disease Assessment and Plan: Heme/Onc consult, Dr Silverman Infectious Disease consult, Dr Shields CRP 14.79 HIV 1 & 2 Antibody Screen negative ESR 74 CMV Ab F/U EBV Ab F/U Lupus (SLE) Panel, F/U ALYX negative Blood cultures F/U US - lymphadenopathy, no fluid collection Fever today with diarrhea most likely secondary to antibiotics - F/U c. diff Meds: Cefepime 2g IVPB Q8H NS @ 100 cc/hr Status: Acute Priority: High (2) Transaminitis Assessment and Plan: On admission AST 39 ALT 36 Avoid hepatotoxic drugs monitor Status: Acute Priority: Low (3) Prophylactic measure Assessment and Plan: Protonix 40mg IV QD Encourage ambulation Status: Acute Priority: Low
[2017-08-28 16:16] LABS: CYTOMEGALOVIRUS AB (IGG) <0.60 U/mL
[2017-08-28 16:35] LABS: TOXOPLASMA IGG AB <7.20 IU/mL
[2017-08-28 16:56] LABS: CYTOMEGALOVIRUS AB (IGM) <30.00 AU/mL
[2017-08-28 16:56] LABS: TOXOPLASMA IGM AB <8.00 AU/mL
[2017-08-29] MEDS: Cefepime 2 GM in Dextrose 5% In Water 100 ML IVPB SCH ×3 (04:25→21:34)
[2017-08-29] MEDS: Sodium Chloride 0.9% 1,000 ML IV SCH ×2 (05:12→14:38)
[2017-08-29] MEDS: Saccharomyces Boulardi 250 mg Cap PO SCH ×2 (10:47→17:25)
--- NOTE | 2017-08-29 12:00 | CP.PCM.PN ---
Subjective - Date & Time of Evaluation Date of Evaluation: 08/29/17 Time of Evaluation: 11:40 - Subjective Subjective: Patient was seen and examined by me There was a Tmax of 100.2 recorded yesterday. She said she did not feel this. She also reported feeling normal. She denied shortness of breath, denied chest pain, denied abdominal pain, denied palpitations, denied headaches, denied neck pain Yesterday reported having diarrhea - this resolved today she says. Per review of medical records she came in with [facility] on 2014 and had a bone marrow biopsy and was determined to have Kikuchi disease. I frankly told the patient as well as family members that I did not know very much about this disease process and would have to read about it. This being said the patient is on IV cefepime and she thinks she's done very well since comming to the hospital on 08/26/2017 She has a negative ALYX, The ESR and also CRP are very high. She is afebrile this morning. WBC was low. HIV negative, C diff negative, CMV negative, Toxo negative, the blood and urine cultures negative 24 hrs. Objective - Vital Signs/Intake and Output Vital Signs (last 24 hours): Temp Pulse Resp BP Pulse Ox 99.1 F 109 H 20 103/67 97 08/29/17 08:17 08/29/17 08:17 08/29/17 08:17 08/29/17 08:17 08/29/17 08:17 Intake and Output: 08/29/17 08/29/17 06:59 18:59 Intake Total 950 Output Total 1 Balance 949 - Medications Medications: Current Medications Sodium Chloride (Sodium Chloride 0.9%) 1,000 mls @ 100 mls/hr IV .Q10H [facility] Last Admin: 08/28/17 21:33 Dose: Not Given Cefepime HCl 2 gm/ Dextrose 100 mls @ 100 mls/hr IVPB Q8H [facility] Last Admin: 08/29/17 10:47 Dose: 100 mls/hr Pantoprazole Sodium (Protonix Inj) 40 mg IVP DAILY [facility] Last Admin: 08/29/17 10:47 Dose: 40 mg Saccharomyces Boulardii (Florastor) 250 mg PO BID [facility] Last Admin: 08/29/17 10:47 Dose: 250 mg - Labs Labs: 08/28/17 11:29 08/28/17 11:29 - Constitutional Appears: Well, Non-toxic, No Acute Distress - Head Exam Head Exam: ATRAUMATIC, NORMAL INSPECTION, NORMOCEPHALIC - Eye Exam Eye Exam: EOMI, Normal appearance - ENT Exam ENT Exam: Mucous Membranes Moist - Neck Exam Neck Exam: Full ROM. absent: Tenderness - Respiratory Exam Respiratory Exam: Clear to Ausculation Bilateral, NORMAL BREATHING PATTERN - GI/Abdominal Exam GI & Abdominal Exam: Soft, Normal Bowel Sounds. absent: Distended, Firm, Guarding, Rigid, Tenderness - Neurological Exam Neurological Exam: Alert, Awake, Oriented x3 Neuro motor strength exam: Left Upper Extremity: 5, Right Upper Extremity: 5, Left Lower Extremity: 5, Right Lower Extremity: 5 - Psychiatric Exam Psychiatric exam: Normal Affect, Normal Mood - Skin Skin Exam: Pallor, Pallor, Warm Assessment and Plan - Assessment and Plan (Free Text) Assessment: (1) Kikuchi disease, diagnosed in 2014. She did ok until recently Assessment and Plan: 08/29: ALYX is negative, HIV negative, Toxo, C diff, CMV negative. She does have a high CRP and ESR. Currently on Cefepime 2g Q8H also on IVF as well 100 cc/hr (2) Transaminitis Assessment and Plan: On admission AST 39 ALT 36 Avoid hepatotoxic drugs monitor (3) Prophylactic measure Assessment and Plan: Protonix 40mg IV QD Encourage ambulation
--- NOTE | 2017-08-29 19:51 | CP.PCM.PN ---
Subjective - Date & Time of Evaluation Date of Evaluation: 08/29/17 Time of Evaluation: 19:00 - Subjective Subjective: Feeling better Objective - Vital Signs/Intake and Output Vital Signs (last 24 hours): Temp Pulse Resp BP Pulse Ox 98.8 F 94 H 20 108/72 98 08/29/17 15:00 08/29/17 15:00 08/29/17 15:00 08/29/17 15:00 08/29/17 15:00 - Medications Medications: Current Medications Cefepime HCl 2 gm/ Dextrose 100 mls @ 100 mls/hr IVPB Q12 [facility] Pantoprazole Sodium (Protonix Inj) 40 mg IVP DAILY [facility] Last Admin: 08/29/17 10:47 Dose: 40 mg Saccharomyces Boulardii (Florastor) 250 mg PO BID [facility] Last Admin: 08/29/17 17:25 Dose: 250 mg - Labs Labs: 08/28/17 11:29 08/28/17 11:29 - Head Exam Head Exam: ATRAUMATIC - Eye Exam Eye Exam: Normal appearance - ENT Exam ENT Exam: Mucous Membranes Dry - Respiratory Exam Respiratory Exam: NORMAL BREATHING PATTERN - Cardiovascular Exam Cardiovascular Exam: +S1, +S2 - GI/Abdominal Exam GI & Abdominal Exam: Normal Bowel Sounds - Extremities Exam Extremities Exam: Normal Inspection Assessment and Plan (1) Neutropenia Assessment & Plan: secondary to Kakuchi disease Status: Acute (2) Anemia Assessment & Plan: normal iron, b12, folate stores chronic disease Status: Acute
--- NOTE | 2017-08-29 19:52 | CP.PCM.PN ---
Subjective - Date & Time of Evaluation Date of Evaluation: 08/28/17 Time of Evaluation: 17:00 - Subjective Subjective: No complaints. Objective - Vital Signs/Intake and Output Vital Signs (last 24 hours): Temp Pulse Resp BP Pulse Ox 98.8 F 94 H 20 108/72 98 08/29/17 15:00 08/29/17 15:00 08/29/17 15:00 08/29/17 15:00 08/29/17 15:00 - Medications Medications: Current Medications Cefepime HCl 2 gm/ Dextrose 100 mls @ 100 mls/hr IVPB Q12 [facility] Pantoprazole Sodium (Protonix Inj) 40 mg IVP DAILY [facility] Last Admin: 08/29/17 10:47 Dose: 40 mg Saccharomyces Boulardii (Florastor) 250 mg PO BID [facility] Last Admin: 08/29/17 17:25 Dose: 250 mg - Labs Labs: 08/28/17 11:29 08/28/17 11:29 - Head Exam Head Exam: ATRAUMATIC - Eye Exam Eye Exam: Normal appearance - ENT Exam ENT Exam: Mucous Membranes Dry - Respiratory Exam Respiratory Exam: NORMAL BREATHING PATTERN - Cardiovascular Exam Cardiovascular Exam: +S1, +S2 - GI/Abdominal Exam GI & Abdominal Exam: Normal Bowel Sounds - Extremities Exam Extremities Exam: Normal Inspection Assessment and Plan (1) Neutropenia Assessment & Plan: secondary to Kikuchi disease Status: Acute (2) Anemia Assessment & Plan: chronic disease Status: Acute
[2017-08-30] MEDS: Sodium Chloride 0.9% 1,000 ML IV SCH (02:13)
[2017-08-30] MEDS: Cefepime 2 GM in Dextrose 5% In Water 100 ML IVPB SCH (09:45)
[2017-08-30] MEDS: Saccharomyces Boulardi 250 mg Cap PO SCH (09:45)
--- NOTE | 2017-08-30 15:35 | CP.PCM.DIS ---
Provider - Provider Date of Admission: 08/26/17 16:08 Attending physician: Tanisha Wilson DO Primary care physician: Clinic Consults: [facility] - Alyson Silverman Time Spent in preparation of Discharge (in minutes): 45 Hospital Course - Lab Results Lab Results: Micro Results 08/27/17 17:00 Blood Blood Culture - Preliminary NO GROWTH AFTER 48 HOURS 08/27/17 16:30 Blood Blood Culture - Preliminary NO GROWTH AFTER 48 HOURS 08/27/17 20:13 Urine,Clean Catch Urine Culture - Final No Growth (<1,000 CFU/ML) Most Recent Lab Values WBC 2.3 K/uL (4.8-10.8) L 08/28/17 11:29 RBC 3.65 Mil/uL (3.80-5.20) L 08/28/17 11:29 Hgb 10.1 g/dL (11.0-16.0) L 08/28/17 11:29 Hct 29.9 % (34.0-47.0) L 08/28/17 11:29 MCV 81.9 fL (81.0-99.0) 08/28/17 11:29 MCH 27.8 pg (27.0-31.0) 08/28/17 11:29 MCHC 33.9 g/dL (33.0-37.0) 08/28/17 11:29 RDW 13.5 % (11.5-14.5) 08/28/17 11:29 Plt Count 310 K/uL (130-400) 08/28/17 11:29 MPV 8.1 fL (7.2-11.7) 08/28/17 11:29 Neut % (Auto) 42.2 % (50.0-75.0) L 08/28/17 11:29 Lymph % (Auto) 38.9 % (20.0-40.0) 08/28/17 11:29 Clayton % (Auto) 18.1 % (0.0-10.0) H 08/28/17 11:29 Eos % (Auto) 0.5 % (0.0-4.0) 08/28/17 11:29 Baso % (Auto) 0.3 % (0.0-2.0) 08/28/17 11:29 Neut # 1.0 K/uL (1.8-7.0) L 08/28/17 11:29 Lymph # 0.9 K/uL (1.0-4.3) L 08/28/17 11:29 Clayton # 0.4 K/uL (0.0-0.8) 08/28/17 11:29 Eos # 0.0 K/uL (0.0-0.7) 08/28/17 11:29 Baso # 0.0 K/uL (0.0-0.2) 08/28/17 11:29 Differential Comment 08/26/17 14:13 ESR 74 mm/hr (0-20) H 08/26/17 19:46 Retic Count 0.6 % (0.5-1.5) D 08/27/17 06:31 Sodium 136 mmol/L (132-148) 08/28/17 11:29 Potassium 3.7 mmol/L (3.6-5.2) 08/28/17 11:29 Chloride 102 mmol/L (98-107) 08/28/17 11:29 Carbon Dioxide 23 mmol/L (22-30) 08/28/17 11:29 Anion Gap 15 (10-20) 08/28/17 11:29 BUN 8 mg/dL (7-17) 08/28/17 11:29 Creatinine 0.5 mg/dL (0.7-1.2) L 08/28/17 11:29 Est GFR ( Amer) > 60 08/28/17 11:29 Est GFR (Non-Af Amer) > 60 08/28/17 11:29 Random Glucose 74 mg/dL (65-105) 08/28/17 11:29 Calcium 8.3 mg/dl (8.6-10.4) L 08/28/17 11:29 Phosphorus 2.8 mg/dL (2.5-4.5) 08/27/17 06:31 Magnesium 1.9 mg/dL (1.6-2.3) 08/27/17 06:31 Ferritin 76.9 ng/mL 08/27/17 06:31 Total Bilirubin 0.4 mg/dL (0.2-1.3) 08/28/17 11:29 AST 27 U/L (14-36) 08/28/17 11:29 ALT 33 U/L (9-52) 08/28/17 11:29 Alkaline Phosphatase 58 U/L (38-126) 08/28/17 11:29 Troponin I < 0.0120 ng/mL (0.00-0.120) 08/26/17 14:13 C-React Prot High Sens 14.79 mg/L (1.00-3.00) H 08/26/17 19:46 Total Protein 8.5 g/dL (6.3-8.3) H 08/28/17 11:29 Albumin 3.8 g/dL (3.5-5.0) 08/28/17 11:29 Globulin 4.7 gm/dL (2.2-3.9) H 08/28/17 11:29 Albumin/Globulin Ratio 0.8 (1.0-2.1) L 08/28/17 11:29 Vitamin B12 900 pg/mL (239-931) 08/27/17 06:31 Folate 16.6 ng/mL 08/27/17 06:31 Urine Color Straw (YELLOW) 08/26/17 14:13 Urine Clarity Clear (Clear) 08/26/17 14:13 Urine pH 6.0 (5.0-8.0) 08/26/17 14:13 Ur Specific [place] 1.004 (1.003-1.030) 08/26/17 14:13 Urine Protein Negative mg/dL (NEGATIVE) 08/26/17 14:13 Urine Glucose (UA) Normal mg/dL (Normal) 08/26/17 14:13 Urine Ketones Negative mg/dL (NEGATIVE) 08/26/17 14:13 Urine Blood Negative (NEGATIVE) 08/26/17 14:13 Urine Nitrate Negative (NEGATIVE) 08/26/17 14:13 Urine Bilirubin Negative (NEGATIVE) 08/26/17 14:13 Urine Urobilinogen Normal mg/dL (0.2-1.0) 08/26/17 14:13 Ur Leukocyte Esterase Neg Parker/uL (Negative) 08/26/17 14:13 Urine WBC (Auto) 1 /hpf (0-5) 08/26/17 14:13 Urine RBC (Auto) 1 /hpf (0-3) 08/26/17 14:13 Ur Squamous Epith Cells 1 /hpf (0-5) 08/26/17 14:13 Urine HCG, Qual Negative (NEGATIVE) 08/26/17 14:13 ALYX 6 Profile Negative (NEGATIVE) 08/26/17 19:46 ALYX Screen Negative (NEGATIVE) 08/26/17 19:46 ALYX Titer TNP 08/26/17 19:46 ALYX Pattern TNP 08/26/17 19:46 C. difficile Ag & Toxin Negative (NEGATIVE) 08/28/17 20:00 CMV IgG Ab <0.60 U/mL 08/26/17 19:46 CMV IgM Ab <30.00 AU/mL 08/26/17 19:46 HIV 1&2 Antibody Screen Negative (NEGATIVE) 08/26/17 19:46 Toxoplasma IgG Ab <7.20 IU/mL 08/27/17 06:31 Toxoplasma IgM Ab <8.00 AU/mL 08/27/17 06:31 Toxoplasma Ab Interp TEST NOT PERFORMED 08/27/17 06:31 - Hospital Course Hospital Course: Hospital ED last with intermittent fevers for the past 2 weeks. She occasionally measures the the temperature orally which she says is usually around 101. During this 2 week course of intermittent fevers she states she has been feeling fatigued. She endorsed an enlarging, non tender lump in the left pectoral region, superior to the her left breast, which she first noticed 2 weeks ago. She endorsed a non tender lump in her left axilla, which she also first noticed 2 weeks ago. She denies join pain, rash, arthritis, night sweats, weight loss. She denies nausea, vomiting, diarrhea, constipation, appetite changes, recent travel or camping, sick contact. During this 2 week period of fevers and fatigue, the patient has kept up her normal routine of going to work and socializing with friends. Last month she had a friend visit from [facility] who stayed with the patient for 10 days. She was discharged from [facility] in 07/2015 and told to follow up with supervisor grain and yeast plants/oncologist Dr. Sheikh, however the patient did not follow up. The patient was seen in the [facility] in 09/2015 for a routine check up. Todays presentation is a similar presentation to her admission in 2014 where no bacterial infection was noted after extensive hospitalization and empiric antibiotic coverage. The patients WBC count was low upon admission with slight elevation in transaminases. Throughout her stay was tested for several infectious diseases and patient was negative for HIV, CMV, toxoplasma and ALYX. As a precaution, patient was prescribed antibiotics. Upon admission, Chest X-Ray revealed no acute cardiomegaly pathology and CT of Chest/Abdomen/Pelvis revealed left axillary and subpectoral lymphadenopathy is appreciated including left axilla node measuring 1.7cm x 2.7cm including subpectoral lymph nodes identified with the largest measuring approximately 1.2cm x 2.0cm. Heme/Onc and Infectious Disease were both consulted for this case. Breast ultrasound was performed the follow day to further investigate the non tender lump in the left pectoral region which displayed findings highly suspicious of left axillary and infraclavicular lymphadenopathy. Patients fever and symptoms have begun to resolve since starting the antibiotics. Patient remained stable over the weekend. Patient today presented with no fever and any compliants. Discharge Exam - Head Exam Head Exam: ATRAUMATIC - Eye Exam Eye Exam: EOMI Pupil Exam: NORMAL ACCOMODATION - ENT Exam ENT Exam: Mucous Membranes Moist - Respiratory Exam Respiratory Exam: NORMAL BREATHING PATTERN - Cardiovascular Exam Cardiovascular Exam: REGULAR RHYTHM - Back Exam Back exam: FULL ROM, NORMAL INSPECTION. absent: CVA tenderness (L), CVA tenderness (R), muscle spasm, paraspinal tenderness, rash noted, tenderness, vertebral tenderness - Neurological Exam Neurological exam: Alert, CN II-XII Intact, Normal Gait, Oriented x3, Reflexes Normal - Psychiatric Exam Psychiatric exam: Normal Affect, Normal Mood - Skin Skin Exam: Dry, Intact, Normal Color, Warm Discharge Plan - Discharge Medications Prescriptions: Naproxen 500 mg PO Q6 #30 tab - Follow Up Plan Condition: STABLE Disposition: HOME/ ROUTINE Additional Instructions: patient stable and clear for d/c please follow up in the clinic. The number to the clinic is [phone]. please call to make an appointment Please follow up with Dr. Silverman in his office. Please call the office to make an appointment. The number to the office is [phone] Please take naproxen for fever or muscle aches please come back to the ER if symptoms return Referrals: Jose Silverman MD [Staff Provider] - [facility] [Outside]
[2017-08-30 16:57] VITALS: BP 115/78; PULSE 107; TEMP 98.7; O2SAT 95
[2017-08-31 00:41] LABS: RHEUMATOID FACTOR 8 IU/mL (<14)
[2017-08-31] MEDS ORDERED: Pantoprazole 40 mg EC Tab PO SCH (10:00)
--- NOTE | 2017-08-31 11:10 | CARD ---
APPROVED REPORT EKG Measurement Heart [id number] <Conclusion> Sinus tachycardia Borderline ECG
[2017-08-31 20:49] LABS: RETICULIN AB IGA NEGATIVE (NEGATIVE)
== END 2017-08-30 17:00 | disposition home or self-care (01) | DRG 399 ==
LOC: C.ER 13:05 → C.9E 16:08 → C.3T 17:04 → C.5S 08-30 14:32
PROVIDERS: ADMIT Hospitalist; ATTEND Hospitalist
DX: I88.9 Nonspecific lymphadenitis, unspecified (principal); D70.9 Neutropenia, unspecified; R50.81 Fever presenting with conditions classified elsewhere; D64.9 Anemia, unspecified; Z87.74 Personal history of (corrected) congenital malformations of heart and circulatory system